=== PATIENT | male | born 1955 | race Caucasian/White ===

== ENCOUNTER → 2016-10-03 | Outpatient (CLI) | payer BC, OTHER ==
[2016-10-03 14:02] LABS: CHOLESTEROL/HDL RATIO 3.3; PROSTATE SPECIFIC ANTIGEN 1.35 ng/ml (0.000-4.000); THYROID STIMULATING HORMONE 1.22 uIu/ml (0.300-4.500)
== END | disposition home or self-care (01) ==
LOC: C.LABMFLN 10:14
PROVIDERS: ATTEND Family Medicine
DX: E03.9 Hypothyroidism, unspecified (principal); E78.5 Hyperlipidemia, unspecified; R29.890 Loss of height; Z12.5 Encounter for screening for malignant neoplasm of prostate; E55.9 Vitamin D deficiency, unspecified

== ENCOUNTER → 2016-10-18 | Outpatient (CLI) | payer OTHER | END | disposition home or self-care (01) | LOC: C.LABMFLN 10:20 | PROVIDERS: ATTEND Family Medicine | DX: L03.019 Cellulitis of unspecified finger (principal) ==

== ENCOUNTER → 2017-08-22 | Outpatient (CLI) | payer OTHER | END | disposition home or self-care (01) | LOC: C.LABMFLN 10:15 | PROVIDERS: ATTEND Family Medicine | DX: M71.169 Other infective bursitis, unspecified knee (principal) ==

== ENCOUNTER → 2017-10-30 | Outpatient (CLI) | payer OTHER | END | disposition home or self-care (01) | LOC: C.LABMFLN 07:30 | PROVIDERS: ATTEND Family Medicine | DX: E03.9 Hypothyroidism, unspecified (principal); E78.5 Hyperlipidemia, unspecified; E55.9 Vitamin D deficiency, unspecified ==